=== PATIENT | female | born 1950 | race Caucasian/White ===

== ENCOUNTER 2019-08-28 12:01 | Emergency (ER) | payer MEDICARE, OTHER, SELFPAY ==
[2018-12-11 12:09] VITALS: BMI 25.0
[2019-08-28] VITALS (9 sets, daily range): BP systolic 105–173; BP diastolic 53–84; PULSE 66–84; RESP 15–16; TEMP 35.9; O2SAT 95–100; BMI 25.7
--- NOTE | 2019-08-28 12:22 | ED.VIS.INJ ---
History of Present Illness Chief Complaint: Upper Extremity Injury Informant: Patient Onset: Today Mechanism/Context: Fall, Trip Quality of Pain: Sharp Current Severity: Severe Maximum Severity: Severe Associated Symptoms: Parasthesias - over left shoulder Narrative: Patient is a 69-year-old female with history of depression and GERD presenting with left shoulder injury. Patient states she fell off the treadmill at [employer] and then fell back and hit her shoulder on the ledge. She is not exactly sure how she landed because it happened so fast. She denies hitting her head or any loss of consciousness. She states she is on any anticoagulation. She had significant pain in her left shoulder after the fall. She has a hard time moving her arm secondary to the pain. She has some tingling over her shoulder but no numbness, tingling or weakness of her hand. She denies any other injuries or complaints at this time. Past Medical History - Allergies and Home Meds Allergies/Adverse Reactions: Allergies oxaprozin [From Daypro] Allergy (Mild, Verified 11/28/18 15:31) itching Primary Care Physician: Rosanna Jean-Baptiste MD [Primary Care Provider] - Artie Aly MD [STAFF PHYSICIAN] - Past Medical History: - - Depression, GERD Surgical History: noncontributory Lives: Spouse/ Significant Other Smoking Status: Never smoker Review of Systems General: Denies: Chills, Fever, Sweats Eyes: Denies: Visual changes - bilaterally, Diplopia ENT: Denies: Rhinorrhea, Sore throat Cardiovascular: Denies: Chest pain, Palpitations Respiratory: Denies: Dyspnea, Cough, Dyspnea on exertion Gastrointestinal: Denies: Nausea, Vomiting Genitourinary: Denies: Dysuria, Hematuria, Frequency Musculoskeletal: Reports: Extremity Pain - Left shoulder. Denies: Back pain Skin: Denies: Rash, Wounds Neurological: Denies: Headache, Weakness, Numbness Physical Exam Vital Signs/Narrative: Vital Signs Temp Pulse Resp BP Pulse Ox 08/28/19 12:02 96.7 F L 84 16 105/53 L 98 Inital Vital Signs reviewed: Yes General: Well nourished, Well developed Head: Normocephalic, Atraumatic Eyes: Perrl, EOMI ENT: TM's clear, No hemotympanum or drainage, No trauma Neck: Nontender, Full ROM Cardiovascular: Regular rate, Regular rhythm, No murmurs Respiratory: No distress, CTA bilaterally, Chest nontender Abdomen: Soft, Nontender, Nondistended Back: Nontender Extremeties: Deformity of the left shoulder joint with decreased range of motion and significant tenderness to palpation. Normal range of motion of distal elbow and wrist with no other deformity Skin: Normal color, No rash Neurological: Alert, Oriented x3, Cranial nerves II-XII grossly intact, Normal Strength, Normal Sensation. Negative for: Parasthesia, Weakness Psychological: Normal affect Diagnostic/Tx/Re-eval Clinical Impression(s) from Imaging Studies Shoulder X-Ray 08/28/19 12:57 IMPRESSION: Anterior inferior dislocation of the left glenohumeral joint. Electronically Signed: Aniket Haas, at 13:18 EST , Service support , - Medical Decision Making Patient evaluated for left shoulder pain after fall. She has a dislocation. Patient is given IV morphine and then fentanyl. Reduction performed. See procedure note. Patient has significant improvement of her symptoms. She is given oral [place] prior to discharge. Patient is counseled on signs and symptoms requiring return to the emergency room. Patient verbalizes agreement and understand this plan. Patient discharged home in stable and improved condition. Procedures Procedure(s): Closed reduction of the left shoulder with procedural sedation. Patient placed on monitor with FiO2, telemetry and end-tidal CO2. She is given a total of 80 mg of IV propofol via small aliquots until adequate sedation achieved. Traction with external rotation and abduction and eventually reduces the shoulder with an audible thumb. It did take 3 attempts at this. Patient is placed in a sling and swath to immobilize. Repeat x-ray shows resolution of the dislocation. Patient is neurovascularly intact afterwards. She tolerated procedure well with no immediate complications. ED Disposition - Plan for ED Patient: Disposition: Home or Assisted Living Diagnosis: Dislocation of left shoulder joint Instructions: DISLOCATION: SHOULDER (Reduced) Prescriptions: Hydrocodone Bitart/Apap 5-325 [[place] 5MG-325MG] 1 tab PO Q6H PRN PRN 3 Days #12 tab PRN Reason: Pain Prescription Printed Referrals: Rosanna Jean-Baptiste MD [Primary Care Provider] - Artie Aly MD [STAFF PHYSICIAN] - Additional Instructions: Call tomorrow to arrange follow-up with orthopedics in 1 week. Do not mix alcohol with your pain medication. Return to emergency room if you develop any worsening symptoms or develop numbness or weakness of your hand. Continue to wear your sling as much as possible.
[2019-08-28] MEDS: Morphine 4 MG/ML Syringe IV (12:34)
--- NOTE | 2019-08-28 12:57 | RAD_ITS ---
STUDY: X-RAY - LEFT SHOULDER REASON FOR EXAM: Female, 69 years old. Pain following a fall. TECHNIQUE: 2 view(s) of the shoulder. COMPARISON: None. FINDINGS: Anterior inferior dislocation of the left glenohumeral joint. There is hypertrophic osteoarthrosis of the acromioclavicular joint with inferior osseous spur formation. Normal acromion. Normal humeral head and visualized proximal humerus. The soft tissue structures are unremarkable. Normal visualized pulmonary apex. RAD/Shoulder min 2 Views IMPRESSION: Anterior inferior dislocation of the left glenohumeral joint. Electronically Signed: Aniket Haas, at 13:18 EST , Service support ,
[2019-08-28] MEDS: fentaNYL 100 MCG/2 ML Ampul 50 MCG IV (13:34)
[2019-08-28] MEDS: Propofol 200 MG/20 ML Vial IV BOLUS (13:35)
--- NOTE | 2019-08-28 13:47 | RAD_ITS ---
STUDY: X-RAY - LEFT SHOULDER REASON FOR EXAM: Female, 69 years old. Post reduction. TECHNIQUE: 2 view(s) of the shoulder. COMPARISON: Comparison is made with prior examination done earlier today. FINDINGS: Satisfactory reduction of the glenohumeral joint. There is degenerative arthrosis of the acromioclavicular joint without inferior osseous spur formation. Normal acromion. Normal humeral head and visualized proximal humerus. The soft tissue structures are unremarkable. Mild increased markings at the left lung base suggestive of atelectasis. RAD/Shoulder min 2 Views IMPRESSION: Satisfactory reduction of the glenohumeral joint. Electronically Signed: Aniket Haas, at 14:06 EST , Service support ,
[2019-08-28] MEDS: HYDROcodone Bitartrate/Apap 5/325 Tablet PO (14:28)
== END 2019-08-28 14:43 | disposition home or self-care (01) ==
PROVIDERS: Emergency Provider Emergency Medicine; Family Provider Internal Medicine; PCP Internal Medicine
DX: S43.005A Unspecified dislocation of left shoulder joint, initial encounter (principal); W01.0XXA Fall on same level from slipping, tripping and stumbling without subsequent striking against object, initial encounter; K21.9 Gastro-esophageal reflux disease without esophagitis; F32.9 Major depressive disorder, single episode, unspecified
CPT/HCPCS: 73030; 99152; 99285; J7040; A4216

== ENCOUNTER → 2020-11-22 12:48 | Outpatient (CLI) | payer MEDICARE, OTHER, SELFPAY ==
[2019-08-28 12:02] VITALS: BMI 25.7
--- NOTE | 2020-11-22 12:51 | CDU_ITS ---
Reason For Study: Amaurosis fugax Rt. Velocities/BP Lt. Velocities/BP Prox CCA 83.9/13.4 cm/sec. Prox CCA 82.6/18.6 cm/sec. Mid CCA 73.4/17.3 cm/sec. Mid CCA 73.4/16 cm/sec. Dist CCA 61.7/17.3 cm/sec. Dist CCA 65.6/16 cm/sec. Prox ICA 53.9/12.1 cm/sec. Prox ICA 56.4/14.6 cm/sec. Mid ICA 63/20 cm/sec. Mid ICA 89.3/24.5 cm/sec. Dist ICA 86.5/23.9 cm/sec. Dist ICA 102.3/29.8 cm/sec. Rt. ICA/CCA = 1.18. Lt. ICA/CCA = 1.39. Prox ECA 61.7/8.2 cm/sec. Prox ECA 66.9/10.8 cm/sec. Rt. Vert. 61.7/17.3 cm/sec. Lt. Vert. 60.5/18.8 cm/sec. Right Extracranial There is intimal thickening but no significant atherosclerotic plaque noted in the right common carotid artery. There is heterogeneous, irregular atherosclerotic plaque noted in the right internal carotid artery. There is intimal thickening but no significant atherosclerotic plaque noted in the right external carotid artery. Antegrade flow is noted in the right vertebral artery. Left Extracranial There is intimal thickening but no significant atherosclerotic plaque noted in the left common carotid artery. There is intimal thickening but no significant atherosclerotic plaque noted in the left internal carotid artery. There is intimal thickening but no significant atherosclerotic plaque noted in the left external carotid artery. Antegrade flow is noted in the left vertebral artery. Procedure Carotid Duplex 46019. This is a Carotid Duplex examination using B-mode, color flow and specral Doppler. Exam performed in department. Interpretation Summary Mild (<50%) stenosis right extracranial internal carotid. No significant atherosclerotic plaque or stenosis noted in the left internal carotid artery. Flow within the vertebral arteries is antegrade bilaterally. Ordering Physician: Misha Sanford Referring Physician: Rosanna Jean-Baptiste Performed By: Darlene Driver RVT
== END ==
PROVIDERS: PCP Internal Medicine; Referring Provider Ophthalmology; Visit Provider Ophthalmology
DX: G45.3 Amaurosis fugax (principal)
CPT/HCPCS: 93880

== ENCOUNTER → 2021-03-16 12:24 | Outpatient (CLI) | payer MEDICARE, OTHER, SELFPAY ==
[2021-02-28 15:05] VITALS: BMI 27.1
--- NOTE | 2021-03-16 | IMM_PTH ---
PATIENT: QUEENIE ROSEN LOC: [facility] U#:[id number] AGE/SX: 75/F ROOM: RE03/16/[address]: Dr. Vanessa Hsu MD : 1950 BED: DIS: SPEC #: [id number] RECD: 03/17/21 11:17 STATUS: DARCI REQ #: [id number] LOULOU: 03/16/21 00:[address]: Vanessa Hsu DEPT: IMMUNOHISTOCHEMISTRY RECD BY: Joseline Mcdonald ENTERED: 03/17/21 11:18 SP TYPE: IMMUNO OTHR DR: Dr. Rosanna Jean-Baptiste MD Tissues: Left breast, NOS Procedures: CALPONIN-1 (add) CK5-6 (add) CK8 (add) E-CAD (add) HER2 SUMAN (add) KI-67 (add) P53 (add) AL (add) P40 (add) ER (initial) PHYSICIAN & INSTITUTION [address] [address] SPECIMEN INFORMATION: Tissue Source: Left breast, stereotactic core biopsy Clinical Info: Left breast abnormal calcifications Specimen Number: [id number] #2 CPT code: 68292, 28365 x6, 53569 x3 METHODOLOGY: Deparaffinized sections of prefer/formalin-fixed tissue or PAP/DQ stained slides are incubated with monoclonal/polyclonal antibodies/oligonucleotide probes. Localization is made via biotin free immunoperoxidase method. Appropriate controls are performed and reacted as expected. Results on target cell population are indicated in the following table: RESULTS: ANTIBODY / CLONE RESULT Block 2 P53 (DO-7) negative Ki-67 (30-9) positive, 80% CK8 (87qbkmU26) positive, focal, dim CK5-6 (D5 & 1684) positive Calponin-1 (EV227I) positive P40 (BC28) positive E-Cad (ECH-6) positive MORPHOMETRIC ANALYSIS ER (clone 6F11) negative AL (clone 16/1E2) negative Her-2Neu (clone CB11) negative The prognostic test for HER2 is performed on formalin-fixed paraffin embedded tissue. A 3+ (positive) staining pattern is defined as intense, homogeneous, complete, circumferential membranous staining in >10% of contiguous tumor cells. A similar weak (2+) staining pattern is interpreted as equivocal. SASKIA follow-up testing is recommended for all equivocal cases. Positivity/negativity for ER/AL is reported if > or < 1% of the tumor cells are immuno- reactive, respectively. The ASCO/CAP criteria is used for scoring. Reference: Journal of Clinical Oncology, 2013; 31:3733-1651 & 2010; 16:1625-2681. Duration of fixation: 6.5 Hrs; Sample Adequate: Yes. These assays have not been validated on decalcified tissues. Results should be interpreted with caution given the likelihood of false negativity on decalcified specimens. These tests were developed and their performance characteristics determined by [facility]. They may not have been cleared or approved by the U.S. Food and Drug Administration. The FDA has determined that such clearance or approval is not necessary. The above immunohistochemical/dualISH markers are ordered and reviewed by the Pathologist. 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 AM:melo 03/18/2021
--- NOTE | 2021-03-16 13:20 | BRBX_PTH ---
PATIENT: QUEENIE ROSEN LOC: [facility] U#:[id number] AGE/SX: 75/F ROOM: RE03/16/[address]: Dr. Vanessa Hsu MD : 1950 BED: DIS: SPEC #: [id number] RECD: 03/16/21 13:29 STATUS: DARCI REAna #: [id number] LOULOU: 03/16/21 13:[address]: Vanessa Hsu DEPT: SURGICAL PATHOLOGY RECD BY: Joey Villa ENTERED: 03/16/21 13:38 SP TYPE: BREAST BX OTHR DR: Dr. Rosanna Jean-Baptiste MD Tissues: Left breast, NOS Procedures: Surgery Specimen Level IV HEADER OPERATION: Left breast stereotactic needle core biopsy PRE-OP DIAGNOSIS: Left breast abnormal calcifications TISSUE SUBMITTED: Left breast ISCHEMIC TIME: 1 minute FIXATION TIME: 6.5 hours MICROSCOPIC DIAGNOSIS Left breast, stereotactic core biopsy: Ductal carcinoma in situ with the following characteristics: Nuclear Grade ? 3/3 Necrosis ? solid with comedo necrosis. Microcalcifications - present See comment. AM:melo 03/17/2021 COMMENT ER/MA/Sqh3fiu studies are being performed on sections of tumor and the results from this study will be reported separately ([id number]). Case has been reviewed in consultation with Dr. Nelson who concurs with the above diagnosis. IDC:IDALMIS MICROSCOPIC DESCRIPTION Slides are reviewed. GROSS DESCRIPTION Received in fixative is one container labeled with the patient name and designated left breast. The specimen consists of multiple elongated fragments of welsh-yellow fibroadipose tissue that in aggregate measure 5 x 3 x 0.3 cm. The entire specimen is submitted in two cassettes. / IDALMIS:melo 03/16/21 TC:0 CPT: 70584
--- NOTE | 2021-03-16 16:58 | PCM.OPRPT ---
Report of Operation Date of Procedure: 03/16/21 Pre-Operative Diagnosis: abnormal calcifications on left breast mammograms Post-Operative Diagnosis: same Surgery/Procedure Performed:: left stereotactic breast biopsy Description of Surgical Findings:: inferior aspect of breast Surgeon: Vanessa Hsu Type of Anesthesia: Local (1% xylocaine) Specimen's removed: left breast tissue Estimated Blood Loss (mL): minimal Description of Procedure: After informed consent was given, the patient was brought into the Breast Biopsy suite. Appropriate time out protocol was followed. The patient was placed in the prone position on the stereotactic biopsy table. The patient?s left breast was then placed in the opening at the head of the biopsy table. A line installer repairer compression mammogram was then obtained in the medial view. The suspicious radiological lesion was thus identified. Stereo pictures of the lesion were then taken for XYZ coordinates. The Mammotome biopsy stylus was then positioned where it would be entering into the patient?s breast. The skin at this site was then cleansed with a surgical skin preparation. The skin and subcutaneous tissues at this site were then infiltrated with 1% xylocaine. A small skin incision was made with an 11 blade scalpel. The biopsy stylus was then positioned into the patient?s breast at the proper coordinates of depth. Using the Mammotome vacuum-assist device, several core samples of breast tissue were obtained. A specimen mammogram was the obtained. It revealed that the abnormal calcifications were within the specimen. I reviewed this personally and concluded that the tissue sampling was adequate. A hemostatic bowtie marker clip was then placed into the biopsy cavity and a line installer repairer film revealed that it was properly deployed. The patient was then placed in the supine position and pressure was applied to the breast until no active bleeding was noted. Steristrips were applied to reapproximate the skin. A unilateral mammogram in the CC and MLO view were then taken which revealed that the marker clip was in the same area as the previous suspicious lesion. The patient tolerated the procedure well and was discharged from the Breast Biopsy suite in good condition. Complications none noted
== END ==
PROVIDERS: PCP Internal Medicine; Referring Provider Surgery; Visit Provider Surgery
DX: D05.12 Intraductal carcinoma in situ of left breast (principal); J45.909 Unspecified asthma, uncomplicated; K21.9 Gastro-esophageal reflux disease without esophagitis; Z79.899 Other long term (current) drug therapy
CPT/HCPCS: 19081; 88305; 88341; 88342; J7050; A4648

== ENCOUNTER 2021-03-29 09:46 | Day surgery (SDC) | payer MEDICARE, OTHER, SELFPAY ==
[2021-02-28 15:05] VITALS: BMI 27.1
--- NOTE | 2021-03-28 07:29 | HP.PCM_ITS ---
History and Physical Date of Admission: 03/29/21 Zoey Munson [id number] has requested a telemedicine follow-up visit. Zoey Munson verbalized informed consent to proceed with the telemedicine follow-up visit.? Zoey Munson was informed that the details of this telephone visit would be recorded as part of their electronic medical record.? ? Zoey is status post left breast stereotactic biopsy done on 03/16/2021 at [facility]. Pathology (from [facility]) - ductal carcinoma in situe with the following characteristics: nuclear grade 3/3, necrosis - solid with comedo necrosis, microcalcifications present. ER/CO is negative. Patient notes no major problems from the biopsy, she notes some bruising in the area. ? ? PAST MEDICAL HISTORY Diagnosis Date ? Acute bronchitis ? ? Allergic rhinitis due to other allergen ? ? Disorder of bone and cartilage, unspecified ? ? Esophageal reflux ? ? NISQUALLY (hard of hearing) ? ? Internal hemorrhoids without mention of complication ? ? PMH - PAST MEDICAL HISTORY OF ? ? skin cancer ? Snoring ? ? Unspecified asthma, with exacerbation ? ? mild intermittent ? Unspecified constipation ? ? Unspecified inflammatory polyarthropathy ? ? PAST SURGICAL HISTORY Procedure Laterality Date ? BREAST BIOPSY W/STEREOTACTIC GUIDANCE Left 03/16/2021 ? COLONOSCOP W/ OR W/O [facility] SPEC ? 08/22/2006 ? WNL per pt ? COLONOSCOP W/ OR W/O [facility] SPEC ? 12/15/2015 ? Colonoscopy ? EGD W/O OR W/BRUSH/WASH ? 12/15/2015 ? EGD ? PAST SURGICAL HISTORY OF ? 06/15/1980 ? left elbow - bone tumor, benign ? PAST SURGICAL HISTORY OF ? ? ? skin cancer removal neck, BCC ? SIGMOIDOSCOPY FLEX DIAG ? 03/23/2016 ? Sigmoidoscopy, flexible ? TOTAL ABD HYSTERECTOMY+BLAD REPR ? ? ? FAMILY HISTORY Problem Relation Age of Onset ? Cancer Mother ? ? uterine ? Hypertension Father ? ? Stroke Father ? ? Social History ? Tobacco Use ? Smoking status: Never Smoker ? Smokeless tobacco: Never Used Substance Use Topics ? Alcohol use: Yes ? ? Comment: daily ? Drug use: No ? Current Outpatient Medications Medication Sig Dispense Refill ? aspirin 81 mg chewable tablet Take 81 mg by mouth once daily. ? ? ? Pramipexole (MIRAPEX ER) 0.75 mg Tb24 Take 1 tablet by mouth daily at bedtime. 90 tablet 3 ? levocetirizine (XYZAL) 5 mg tablet Take 1 tablet by mouth once daily as needed (for itching, sneezing or runny nose. ). 90 tablet 3 ? citalopram (CELEXA) 20 mg tablet Take 1 tablet by mouth once daily. 90 tablet 3 ? pravastatin (PRAVACHOL) 20 mg tablet Take 1 tablet by mouth daily at bedtime. 90 tablet 3 ? busPIRone (BUSPAR) 5 mg tablet Take 1 tablet by mouth twice daily as needed. 180 tablet 3 ? omeprazole (PRILOSEC) 20 mg capsule Take 1 capsule by mouth once daily. 90 capsule 3 ? meloxicam (MOBIC) 15 mg tablet Take 1 tablet by mouth once daily. for pain. Take with food. 30 tablet 1 ? fluticasone (FLONASE) 50 mcg/actuation nasal spray Use 1-2 Sprays in each nostril once daily. (Patient not taking: Reported on 03/11/2021 ) 3 Bottle 3 ? calcium carbonate/vitamin d3(ALL DAY CALCIUM 600 MG (1,500 MG)-500 UNIT 24 HR TAB) Take one(1) tablet two(2) times daily. 0 0 ? ECHINACEA 380 MG CAP Patient uses in winter months and cold season 0 0 ? ? ALLERGIES Allergen Reactions ? Daypro [Oxaprozin] Hives ? Environmental Aller* ? ? ? Trees, weeds, ragweed ? Hydrocodone Itching ? ? No physical exam performed due to telephone encounter. ? ? ? Assessment IMPRESSION Newly diagnosed left breast DCIS ? PLAN I have explained the pathology of DCIS to the patient in layman's terms. I have explained that the first path for treatment is surgical treatment. Options are the following: lumpectomy followed by radiation therapy vs. mastect lisa vs. mastectomy followed by immediate reconstruction. I have described the procedures to the patient. I have described the advantages and disadvantages of the options, but I have told the patient that among the options, the survival rate for breast cancer is the same. I have told her that she may require reexcision if margins are close or positive in lumpectomy. I have told the patient the risks of surgery, including but not limited to: infection, bleeding, scar tissue, seroma and persistent seroma, lymph leak, injury to any blood vessels, injury to any nerves, cosmetic deformity, dysthesias, wound infections, further surgery (especially if margins are not clear), complications of anesthesia, etc. ? the patient understands. The patient wishes to proceed with lumpectomy/XRT. She wishes to undergo surgery at [facility]. This will be scheduled for March 29. ? I spent 20 minutes in the telephone visit. This includes discussion with the patient, review of the pathology, scheduling for the procedure, and appropriate medical documentation. ? I will communicate my recommendations and prescriptions to the patient's primary care provider. Unrelated to E/M, telemedicine, or virtual visit service provided within previous 7 days. No E/M service or procedure anticipated within next 24 hours. ? ? ? MD Zoey Mijares [id number] 1950 has requested a telemedicine follow-up visit. Zoey Munson verbalized informed consent to proceed with the telemedicine follow-up visit.? Zoey Munson was informed that the details of this telephone visit would be recorded as part of their electronic medical record.? ? Zoey is status post left breast stereotactic biopsy done on 03/16/2021 at [facility]. Pathology (from [facility]) - ductal carcinoma in situe with the following characteristics: nuclear grade 3/3, necrosis - solid with comedo necrosis, microcalcifications present. ER/CO is negative. Patient notes no major problems from the biopsy, she notes some bruising in the area. ? ? PAST MEDICAL HISTORY Diagnosis Date ? Acute bronchitis ? ? Allergic rhinitis due to other allergen ? ? Disorder of bone and cartilage, unspecified ? ? Esophageal reflux ? ? NISQUALLY (hard of hearing) ? ? Internal hemorrhoids without mention of complication ? ? PMH - PAST MEDICAL HISTORY OF ? ? skin cancer ? Snoring ? ? Unspecified asthma, with exacerbation ? ? mild intermittent ? Unspecified constipation ? ? Unspecified inflammatory polyarthropathy ? ? PAST SURGICAL HISTORY Procedure Laterality Date ? BREAST BIOPSY W/STEREOTACTIC GUIDANCE Left 03/16/2021 ? COLONOSCOP W/ OR W/O [facility] SPEC ? 08/22/2006 ? WNL per pt ? COLONOSCOP W/ OR W/O [facility] SPEC ? 12/15/2015 ? Colonoscopy ? EGD W/O OR W/BRUSH/WASH ? 12/15/2015 ? EGD ? PAST SURGICAL HISTORY OF ? 06/15/1980 ? left elbow - bone tumor, benign ? PAST SURGICAL HISTORY OF ? ? ? skin cancer removal neck, BCC ? SIGMOIDOSCOPY FLEX DIAG ? 03/23/2016 ? Sigmoidoscopy, flexible ? TOTAL ABD HYSTERECTOMY+BLAD REPR ? ? ? FAMILY HISTORY Problem Relation Age of Onset ? Cancer Mother ? ? uterine ? Hypertension Father ? ? Stroke Father ? ? Social History ? Tobacco Use ? Smoking status: Never Smoker ? Smokeless tobacco: Never Used Substance Use Topics ? Alcohol use: Yes ? ? Comment: daily ? Drug use: No ? Current Outpatient Medications Medication Sig Dispense Refill ? aspirin 81 mg chewable tablet Take 81 mg by mouth once daily. ? ? ? Pramipexole (MIRAPEX ER) 0.75 mg Tb24 Take 1 tablet by mouth daily at bedtime. 90 tablet 3 ? levocetirizine (XYZAL) 5 mg tablet Take 1 tablet by mouth once daily as needed (for itching, sneezing or runny nose. ). 90 tablet 3 ? citalopram (CELEXA) 20 mg tablet Take 1 tablet by mouth once daily. 90 tablet 3 ? pravastatin (PRAVACHOL) 20 mg tablet Take 1 tablet by mouth daily at bedtime. 90 tablet 3 ? busPIRone (BUSPAR) 5 mg tablet Take 1 tablet by mouth twice daily as needed. 180 tablet 3 ? omeprazole (PRILOSEC) 20 mg capsule Take 1 capsule by mouth once daily. 90 capsule 3 ? meloxicam (MOBIC) 15 mg tablet Take 1 tablet by mouth once daily. for pain. Take with food. 30 tablet 1 ? fluticasone (FLONASE) 50 mcg/actuation nasal spray Use 1-2 Sprays in each nostril once daily. (Patient not taking: Reported on 03/11/2021 ) 3 Bottle 3 ? calcium carbonate/vitamin d3(ALL DAY CALCIUM 600 MG (1,500 MG)-500 UNIT 24 HR TAB) Take one(1) tablet two(2) times daily. 0 0 ? ECHINACEA 380 MG CAP Patient uses in winter months and cold season 0 0 ? ? ALLERGIES Allergen Reactions ? Daypro [Oxaprozin] Hives ? Environmental Aller* ? ? ? Trees, weeds, ragweed ? Hydrocodone Itching ? ? REVIEW OF SYSTEMS: General: The patient denies fatigue, denies weight loss, denies weight gain, denies feeling hot, and denies feelings of cold. Eyes: The patient denies glaucoma, denies eye injury/surgery, does not wear glasses or contacts. Ear/Nose/Throat: The patient denies allergies, denies hayfever, denies ear infections, and denies bloody noses. Cardiovascular: The patient denies chest pain, denies heart disease, denies high blood pressure,denies cardiac stent, denies prior heart attack, den ies irregular heart beat, denies high cholesterol, denies poor circulation, denies heart failure, other cardiac issues, denies claudication, denies cold feet, denies peripheral arterial stent. Respiratory: The patient denies tuberculosis, denies pneumonia, denies frequent cough, denies pulmonary embolism, denies shortness of breath, and denies coughing up blood. Gastrointestinal: The patient denies difficulty swallowing, notes acid reflux, denies ulcers, denies vomiting, denies jaundice/hepatitis, denies gallbladder problems, denies black or tarry stools, denies hemorrhoids, denies bleeding from rectum, denies diverticulitis, denies constipation, denies diarrhea, denies loss of stool control, and denies hernias. Kidney/Bladder: The patient denies kidney stones, denies urine infections, and denies bloody urine. Skin: The patient notes a history of skin cancer, denies bleeding/changing moles, and denies a history of skin rash. Neurologic: The patient denies a history of epilepsy/convulsions, denies headaches, denies head/spinal injuries, and denies stroke/TIA. Psychiatric: The patient denies psychiatric medications, denies depression, and denies voices, denies substance abuse. Endocrine: The patient denies thyroid disorders, denies diabetes, and denies hormonal problems. Hematologic: The patient denies a history of bruising, denies bleeding, and denies anemia, denies blood clots. Infections: The patient denies a history of measles and mumps, denies rheumatic fever, and denies sexually transmitted diseases. Musculoskeletal: The patient denies back pain/injury, denies back problems, denies sciatica, denies knee/foot trouble, denies arthritis, or denies gout. Obstetrical: menarche onset at age 15, 0, BCP use initially age 20 for about 20 y, surgical menopause early 30s (still with ovaries) ? PHYSICAL EXAMINATION: General: The patient is 70 year old female, well nourished, well hydrated in no acute distress. The patient is oriented to time, place, and person. VITALS: Blood pressure 150/82, pulse 83, temperature 36.9 ?C (98.4 ?F), temperature source Temporal Artery, weight 74.4 kg (164 lb), SpO2 98 %. Body mass index is 27.29 kg/m?. Head ? Normocephalic. EOM intact with sclera clear and no icterus noted. Neck - supple with no jugular venous distention noted. Trachea is midline. No thyroid enlargement or thyroid nodules detected. No masses noted. Chest/breast ? no asymmetry of breasts noted, no suspicious skin lesions noted, no nipple discharge and both nipples everted, no breast masses noted Lungs ? clear to auscultation. Normal breath sounds. No rales/rhonchi/wheezing noted. No labored breathing noted, such as retractions. No cough heard. Heart ? normal S1 and S2 auscultated. No rubs/clicks/murmurs noted. Regular rate. Abdomen ? soft and benign. Normal bowel sounds No masses noted Extremities ? no calf tenderness noted. No pitting edema noted. Skin ? normal skin integrity. Lymph ? no cervical adenopathy detected, no supraclavicular adenopathy detected, no axillary adenopathy detected Neurological ? gait normal, no focal deficits noted Psych ? calm and appropriate ? ? IMPRESSION Newly diagnosed left breast DCIS ? PLAN I have explained the pathology of DCIS to the patient in layman's terms. I have explained that the first path for treatment is surgical treatment. Options are the following: lumpectomy followed by radiation therapy vs. mastectomy vs. mastectomy followed by immediate reconstruction. I have described the procedures to the patient. I have described the advantages and disadvantages of the options, but I have told the patient that among the options, the survival rate for breast cancer is the same. I have told her that she may require reexcision if margins are close or positive in lumpectomy. I have told the patient the risks of surgery, including but not limited to: infection, bleeding, scar tissue, seroma and persistent seroma, lymph leak, injury to any blood vessels, injury to any nerves, cosmetic deformity, dysthesias, wound infections, further surgery (especially if margins are not clear), complications of anesthesia, etc. ? the patient understands. The patient wishes to proceed with lumpectomy/XRT. ? ? Vanessa Hsu MD
[2021-03-28 14:57] VITALS: BMI 27.1
[2021-03-29] VITALS (8 sets, daily range): BP systolic 121–143; BP diastolic 61–75; PULSE 65–99; RESP 14–16; TEMP 36.2–37.1; O2SAT 93–99; BMI 26.9
--- NOTE | 2021-03-29 | BRBX_PTH ---
PATIENT: QUEENIE ROSEN [place] [facility] [id number] AGE/SX: 70/F ROOM: RE03/29/[address]: Dr. Vanessa Hsu MD : 1950 BED: DIS: 03/29/2021 SPEC #: [id number] RECD: 03/29/21 13:04 STATUS: DARCI REAna #: [id number] LOULOU: 03/29/21 00:[address]: Vanessa Hsu DEPT: SURGICAL PATHOLOGY RECD BY: Joseline Mcdonald ENTERED: 03/29/21 13:33 SP TYPE: BREAST BX OTHR DR: Dr. Rosanna Jean-Baptiste MD Tissues: A - Left breast, NOS B - Left breast, NOS Procedures: Surgery Specimen Level IV Surgery Specimen Level V HEADER OPERATION: Left breast lumpectomy, NL PRE-OP DIAGNOSIS: Left breast DCIS TISSUE SUBMITTED: A - Left breast, B ? Additional lateral margin MICROSCOPIC DIAGNOSIS A. Left breast, lumpectomy: Ductal carcinoma in situ. See cancer checklist below. B. Additional lateral margin, biopsy: Focal intraductal hyperplasia without atypia and with associated cautery artifact. Fibrocystic change with associated microcalcifications. Focal involutional change. No evidence of malignancy. AM:melo 04/01/2021 COMMENT DUCTAL CARCINOMA IN SITU SUMMARY: Procedure - lumpectomy Specimen type - partial breast Laterality ? left breast Size (extent of DCIS): Estimated size (extent) ? 4 x 4 mm Number of blocks ? 3 of 12 Architectural pattern ? solid and comedo Nuclear grade ? 3/3 Necrosis - present Margins ? uninvolved by in situ carcinoma. Distance from closest margin ? 4 mm from lateral margin Skin - cicatrix Regional lymph nodes ? not submitted Microcalcifications - present in in situ carcinoma Additional Pathologic Findings ? changes of previous biopsy. Ancillary Studies from previous specimen ([id number] / [id number]): ER ? 0% AZ ? 0% Her2 candido ([facility]) - 0 Ki67 ? positive (80%) Clinical history ? left breast mass Pathologic Staging: Tis(DCIS) Nx Mx The above summary is in compliance with [employer] (CAP) Cancer Protocols Checklist and [employer] Joint Committee on Cancer (AJCC), Staging Manual, 8th Ed. Case has been reviewed in consultation with Dr. Nelson who concurs with the above diagnosis. IDC:[email or web address] MICROSCOPIC DESCRIPTION Slides are reviewed. GROSS DESCRIPTION A - Received fresh for intraoperative consultation labeled with the patient's name is a specimen designated left breast. The specimen consists of a piece of fibroadipose tissue with needle localization measuring 9.5 x 4 x 3 cm. The specimen is oriented as follows: two short sutures - anterior, long - lateral, wire - medial, one short - inferior. The specimen is inked as follows: anterior - yellow, posterior - black, superior - blue, inferior - green, medial - red and lateral - orange. A minute fragment of skin is present at anterior surface measuring 0.8 x 0.3 cm. Serial sections reveal a biopsy cavity measuring 3 x 1.5 x 1 cm. This biopsy cavity is close to the lateral margin of the specimen. This information is conveyed to the surgeon intraoperatively. Sections of the rest of the specimen reveal welsh-yellow adipose cut surfaces mixed with welsh-white fibrous areas. Socially Responsible Investment Adviser sections are submitted in 12 cassettes as follows: 1 - perpendicular medial, inferior and posterior margins, 2 - perpendicular superior and inferior margin, 3 & 4 - biopsy cavity with closest lateral margin, 5-8 - biopsy cavity with surrounding area, 9-12 - Socially Responsible Investment Adviser sections away from the biopsy cavity. Sections will be submitted after additional fixation. / SJ:melo 03/30/21 B - Received in fixative is one container labeled with the patient's name and designated left breast additional lateral margin. The specimen consists of multiple pieces of welsh-yellow adipose that in aggregate measure 6 x 4.5 x 1 cm. Sections do not reveal any mass lesion. A focal hemorrhagic area is noted consistent with previous biopsy site. The entire specimen is submitted in six cassettes. Sections will be submitted after additional fixation. / SJ:melo 03/30/21 TC:0 CPT: 86776, 99621
--- NOTE | 2021-03-29 10:30 | BI_ITS ---
SURGICAL BREAST SPECIMEN RADIOGRAPH CLINICAL: Document presence of mass in biopsy specimen. FINDINGS: Specimen shows presence of mass. Electronically Signed: Aniket Haas MD at 14:30 EDT , Service support , BI/Breast Biopsy Specimen
[2021-03-29] MEDS: Lactated Ringers 1,000 ML 125 ML IV (10:43)
[2021-03-29] MEDS: Cefazolin 2 GM in 0.9% Normal Saline 100 ML IV (11:47)
[2021-03-29] MEDS: Bupiv/Epi 0.25% 30 ML Vial (12:07)
--- NOTE | 2021-03-29 14:31 | PCM.OPRPT ---
Report of Operation Date of Procedure: 03/29/21 Pre-Operative Diagnosis: left breast DCIS Post-Operative Diagnosis: same Surgery/Procedure Performed:: left breast lumpectomy via wire localization Description of Surgical Findings:: tumor at inferior ridge - mid - of left breast Surgeon: Vanessa Hsu Type of Anesthesia: General Anesthesiologist: Easton Reeves Specimen's removed: left breast lumpectomy, lateral margin of left breast lumpectomy Estimated Blood Loss (mL): 20 ml Fluids Replaced: 1300 ml RL Description of Procedure: After informed consent was given, the patient was brought into the Breast Stereotactic Radiology suite. Appropriate time out protocol was followed. The patient was then placed in the prone position on the [place] stereotactic table. The patient?s left breast was placed in the opening at the head of the table. A customer equipment engineer compression mammogram was then obtained in the medial to lateral view. The marker clip that was previously placed was identified. Stereo pictures of the lesion were then taken for XYZ coordinates. The Kopans needle was then positioned where it would be entering into the patient?s breast from medial aspect. The skin at this site was then cleansed with a surgical skin preparation. The skin and subcutaneous tissues at this site were then infiltrated with 1% xylocaine. The Kopans needle was then positioned into the patient?s breast at the proper coordinates of depth. A customer equipment engineer film was obtained which revealed the wire in proper position. The patient was then placed in the supine position and the wire was taped into place. A unilateral mammogram in the CC and MLO view were then taken for use in the OR. The patient tolerated this portion of the procedure well and was brought to the AC awaiting surgery in the OR. The patient was then brought to the Operating Room. Appropriate time out protocol was followed. The patient was then placed on the operating table in the supine position. A wire had already been placed in the stereotactic biopsy room in the radiology department as described above. The left breast with the wire in placed was then prepped with a sterile surgical skin preparation and sterile surgical drapes were placed. The skin and subcutaneous tissues at the site of the breast lesion was then infiltrated with 1% xylocaine with epinephrine. A transverse skin incision was then made at the wire entrance site with a 15 blade scalpel and carried down through to the subcutaneous tissues. Hemostasis was controlled with electrocautery. The wire was then palpated out within the breast tissue. The breast tissue surrounding the wire was then carefully palpated out and from the surrounding tissues using electrocautery. The wire entrance site was very medial to the tumor, the tumor was more centrally located and an additional incision was made at the tumor site for extraction. The tumor was located at the inferior ridge - midline of the breast. There was a hematoma cavity that was expressed while extracting the breast tissue with traction. The breast tissue, once from the breast, was then forwarded to the radiology department. A specimen mammogram did not reveal the marker clip. The tissue was forwarded to the pathology department where the biopsy cavity was identified by the pathologist and the margin was close at the lateral margin. Additional breast tissue was therefore excised from the lateral margin. The wound cavity was carefully examined. No further suspicious tissue was palpated or visualized. Hemostasis was carefully controlled with electrocautery. The subdermal tissues were then approximated with vicryl suture. The incision was then reapproximated close using running monocryl suture. Cavilon and steristrips were then placed to reinforce the skin closure. Sponge, needle, and instrument count were verified and correct at the time of skin closure. A sterile dressing was then applied. The patient was then brought to the Recovery Room in stable condition. Complications none noted Admit VTE Documentation VTE Present on Admission: Yes VTE Mechan Device Prophylaxis: SCD's
--- NOTE | 2021-03-29 16:26 | DCINST_ITS ---
Discharge Instructions Follow Up Care Test Results: Test results from this visit will be discussed in further detail at your follow-up appointment, if applicable. Discharge Plan Admission Attending Provider: Vanessa Hsu Primary Care Provider: Rosanna Jean-Baptiste Instructions Additional Instructions / Restrictions: Recommended pain control regimen - May take 600 mg ibuprofen (Motrin) and then in 3-4 hours, may take 650 mg acetaminophen (Tylenol), then in 3-4 hours may take 600 mg ibuprofen, then in 3- 4 hours may take 650 mg acetaminophen and so on for 2-3 days May take narcotic pain medication for pain that is not controlled by above and at night for comfort through the night Leave dressings in place May get dressings wet in shower - do not scrub in the area and pat dry Do not soak - no tub baths/swimming Ice applied to areas of discomfort may help For breast surgery - wear supportive bra during the day, this will prevent the weight of your breast from pulling at the incision site and causing discomfort, ice packs to the area to tuck in your bra may help also Please follow up with me on Sunday at 1:30 in my office, thank you, [phone] . Discharge Orders/Prescriptions Prescriptions: New hydrocodone-acetaminophen 5-325 mg tablet 1 tab PO Q8H 5 Days Qty: 15 RF: 0 No Action buspirone 5 MG tablet 5 mg PO DAILY RF: 0 citalopram 20 MG tablet 20 mg PO DAILY RF: 0 lorazepam 0.5 MG tablet 0.5 mg PO DINNER PRN (Reason: Anxiety) RF: 0 omeprazole 20 MG capsule,delayed release(DR/EC) 20 mg PO DAILY RF: 0 pravastatin 20 MG tablet 20 mg PO QHS RF: 0 levocetirizine 5 MG tablet 5 mg PO DAILY PRN PRN (Reason: Allergies) RF: 0 aspirin 81 mg Tablet 81 mg PO DAILY RF: 0 pramipexole 0.75 mg tablet extended release 24 hr 0.75 mg PO QHS RF: 0 calcium carbonate [Calcium 600] 600 mg calcium (1,500 mg) Tablet 600 mg PO DAILY RF: 0 cholecalciferol (vitamin D3) [Vitamin D3] 25 mcg (1,000 unit) Tablet 25 mcg PO DAILY RF: 0 Referrals / Follow Up: Rosanna Jean-Baptiste MD [Primary Care Provider] - Disposition Discharge Orders: Discharge Patient (Routine); Ordered 03/29/21 Ordered By: Dr. Vanessa Hsu
== END 2021-03-29 17:14 ==
LOC: SDC 09:47 → AC 09:51
PROVIDERS: PCP Internal Medicine; Referring Provider Surgery; Visit Provider Surgery
PROC: (CPT 19301; principal; 2021-03-29 11:15)
DX: D05.12 Intraductal carcinoma in situ of left breast (principal); N60.12 Diffuse cystic mastopathy of left breast; N62 Hypertrophy of breast; K21.9 Gastro-esophageal reflux disease without esophagitis; J45.909 Unspecified asthma, uncomplicated; F41.9 Anxiety disorder, unspecified; Z79.899 Other long term (current) drug therapy
CPT/HCPCS: 00400; 19301; 19281; 76098; 88305; 88307; J7120; J2405; J3490; Q9968